=== PATIENT | female | born 1940 | race Caucasian/White ===

== ENCOUNTER → 2016-08-23 | Outpatient (CLI) | payer OTHER | LOC: BMCIMAGING 10:29 | PROVIDERS: ATTEND Emergency Medicine | DX: M18.12 Unilateral primary osteoarthritis of first carpometacarpal joint, left hand (principal) ==

== ENCOUNTER 2016-12-21 22:41 | Emergency (ER) | payer OTHER ==
[2016-12-21 22:56] VITALS: TEMP 98.2
--- NOTE | 2016-12-21 23:28 | EDPHY ---
General Narrative: CHIEF COMPLAINT: Hematuria HISTORY OF PRESENT ILLNESS: Patient complains of 1 day history of angelina hematuria. She has a history of bladder carcinoma, diagnosed 2011. She reports no evidence of metastases that she is aware of. She has had intermittent therapies, none of which include any chemotherapy. She has a recent cystoscopy performed last Tuesday by her established physician Dr. Sanchez. This was reportedly normal per the patient. There was cytology/pathology sent. She did well until this evening when she noticed bright red blood in her urine. This was completely red when she urinated. She has had no fever or chills. No abdominal pain or fullness. No sensation of incomplete voiding. No incontinence. She does report more frequent urination. No back pain. No trauma or injury. No anticoagulants. No other associated complaints or modifying factors. REVIEW OF SYSTEMS: Ten systems reviewed and are negative unless otherwise noted in the HPI PCP: Dr. Haro SPECIALISTS: Dr. Sanchez PAST MEDICAL HISTORY: Bladder carcinoma, COPD PAST SURGICAL HISTORY: Recurrent cystoscopies and bladder biopsies SOCIAL HISTORY: Nonsmoker. Had a 40 pack year history of cigarette use, quit 6 years ago. No alcohol. FAMILY HISTORY: Noncontributory EXAMINATION General Appearance: Alert, no distress Head: normocephalic, atraumatic Eyes: Pupils equal and round, no conjunctival pallor or injection ENT, Mouth: Mucous membranes moist. Airway patent. Neck: Normal inspection, supple, non-tender Respiratory: Lungs are clear to auscultation. No wheeze, rhonchi or crackles Cardiovascular: Regular rate and rhythm no murmur Gastrointestinal: Abdomen is soft and nontender. No distention. No tympany. No rigidity. No CVA tenderness. No guarding. Nonacute abdomen Back: non-tender, no bony abnormalities Skin: Warm and dry, no rash. No petechiae or purpura Extremities: Nontender, no pedal edema Psychiatric: Mood and affect normal DIFFERENTIAL DIAGNOSES: Including but not limited to hematuria, cystitis, carcinoma, obstruction, stricture, UTI MDM: 11:40 p.m. Gross hematuria in a patient with history of bladder carcinoma, high grade. She has no abdominal pain. Abdominal exam is benign. CBC, BMP, PT PTT have been ordered. Urinalysis is pending. She is in no acute distress. She is not taking anticoagulants. Vital signs are all within normal limits. 11:50 p.m. Postvoid residual reveals no urine on the bladder scanner. 12:15 a.m. At this time I have discussed the case with Dr. Sibley. He will assume care the patient. Please see his note for final disposition. Laboratory studies are pending at this time. Plan for discharge home with follow up with urologist. Her abdominal exam remains benign. Vital signs are stable. No evidence of active bleeding or any evidence of peritonitis. - History Smoking Status: Former smoker - Objective Vital Signs: Initial Vital Signs Temperature (C) 98.2 F 12/21/16 22:52 Heart Rate 74 12/21/16 22:52 Respiratory Rate 18 12/21/16 22:52 Blood Pressure 139/78 H 12/21/16 22:52 O2 Sat (%) 94 12/21/16 22:52 O2 Delivery Mode Room Air Allergies/Adverse Reactions: levofloxacin [From Levaquin] Allergy (Verified 12/21/16 22:56) Home Medications: Medication Instructions Recorded Ascorbic Acid [Vitamin C 500 mg 500 mg PO DAILY 11/24/11 (OTC)] Glucos/MSM/Colgii/C/Man/Herb21 1 each PO BID@,11/24/11 [Glucosamine-MSM Complex Cap] Ca/D3/Mag Ox/Zinc/Manager Diabetes/Torres/Bor 1 each PO BID@,04/25/14 [Caltrate 600+D Plus Tab Chew] Acetaminophen [Tylenol Tablet] 325 mg PO DAILY PRN 05/02/14 Ibuprofen [Motrin (OTC)] 200 mg PO DAILY PRN 05/02/14 Cephalexin [Keflex (*)] 500 mg PO QID #40 cap 07/13/14 Laboratory Results: 12/22/16 12/22/16 12/22/16 00:00 00:00 00:00 WBC Pending RBC Pending Hgb Pending Hct Pending MCV Pending MCH Pending MCHC Pending RDW Pending Plt Count Pending MPV Pending Neut % (Auto) Pending Lymph % (Auto) Pending [place] % (Auto) Pending Eos % (Auto) Pending Baso % (Auto) Pending Nucleat RBC Rel Count Pending Absolute Neuts (auto) Pending Absolute Lymphs (auto) Pending Absolute Monos (auto) Pending Absolute Eos (auto) Pending Absolute Basos (auto) Pending Absolute Nucleated RBC Pending Immature Gran % Pending Immature Gran # Pending APTT Pending Sodium Pending Potassium Pending Chloride Pending Carbon Dioxide Pending Anion Gap Pending BUN Pending Creatinine Pending Estimated GFR Pending Glucose Pending Calcium Pending Urine Color Urine Appearance Urine pH Ur Specific [place] Urine Protein Urine Ketones Urine Blood Urine Nitrate Urine Bilirubin Urine Urobilinogen Ur Leukocyte Esterase Urine RBC Urine WBC Ur Epithelial Cells Urine Mucus Urine Glucose 12/21/16 23:25 WBC RBC Hgb Hct MCV MCH MCHC RDW Plt Count MPV Neut % (Auto) Lymph % (Auto) [place] % (Auto) Eos % (Auto) Baso % (Auto) Nucleat RBC Rel Count Absolute Neuts (auto) Absolute Lymphs (auto) Absolute Monos (auto) Absolute Eos (auto) Absolute Basos (auto) Absolute Nucleated RBC Immature Gran % Immature Gran # APTT Sodium Potassium Chloride Carbon Dioxide Anion Gap BUN Creatinine Estimated GFR Glucose Calcium Urine Color RED Urine Appearance MODERATELY TURBID Urine pH 5.0 (5.0-7.5) Ur Specific [place] 1.018 (1.002-1.030) Urine Protein 2+ H (NEGATIVE) Urine Ketones NEGATIVE (NEGATIVE) Urine Blood 3+ H (NEGATIVE) Urine Nitrate NEGATIVE (NEGATIVE) Urine Bilirubin NEGATIVE (NEGATIVE) Urine Urobilinogen NEGATIVE EU EU (0.2-1.0) Ur Leukocyte Esterase 1+ H (NEGATIVE) Urine RBC 50-182 /hpf H /hpf (0-3) Urine WBC 50-182 /hpf H /hpf (0-3) Ur Epithelial Cells Not Reported Urine Mucus 1+ /lpf /lpf (NONE-1+) Urine Glucose NEGATIVE (NEGATIVE) Departure - Departure Disposition: Home, Routine, Self-Care Clinical Impression: Bladder carcinoma Hematuria Qualifiers: Hematuria type: gross Qualified Code(s): R31.0 - Gross hematuria Condition: Good Instructions: Hematuria (ED) Additional Instructions: 1. Contact established urologist in the morning for further care 2. Return to ED for abdominal pain, chest pain, lightheadedness dizziness or syncope Referrals: Rudi Haro MD [Primary Care Provider] - As per Instructions Elis Sanchez MD [Medical Doctor] - As per Instructions
[2016-12-21 23:33] LABS: COLOR RED; LEUKOCYTE ESTERASE,URINE 1+ (NEGATIVE); NITRITE,URINE NEGATIVE (NEGATIVE)
[2016-12-21 23:39] LABS: MUCUS 1+ /lpf (NONE-1+); RBC,URINE 50-182 /hpf (0-3); WBC,URINE 50-182 /hpf (0-3)
[2016-12-22 00:16] LABS: % IMMATURE GRANULYOCYTES 0.5 % (0.0-1.1); ABSOLUTE IMMATURE GRANULOCYTES 0.04 10^3/uL (0.00-0.10); ADD DIFF? NO; ADD MORPH? NO; ADD SCAN? NO; ATYPICAL LYMPHOCYTE FLAG 20 (0-99); FRAGMENT RBC FLAG 0 (0-99); HEMATOCRIT 39.8 % (38.0-47.0); HEMOGLOBIN 13.8 g/dL (12.6-16.3); LEFT SHIFT FLG 0 (0-99); LIPEMIA HEMOLYSIS FLAG 90 (0-99); MEAN CELL HEMOGLOBIN 31.2 pg (27.9-34.1); MEAN CELL HEMOGLOBIN CONCENTR. 34.7 g/dL (32.4-36.7); MEAN PLATELET VOLUME 9.5 fL (8.7-11.7); PLATELET CLUMPS FLAG 0 (0-99); PLATELET COUNT 253 10^3/uL (150-400); RED BLOOD CELL COUNT 4.42 10^6/uL (4.18-5.33); RED CELL DISTRIBUTION WIDTH 12.5 % (11.5-15.2)
[2016-12-22 00:33] LABS: ANION GAP 13 mEq/L (8-16); CALCIUM 9.4 mg/dL (8.5-10.4); CARBON DIOXIDE 21 mEq/l (22-31); CHLORIDE 106 mEq/L (97-110); CREATININE 0.8 mg/dL (0.6-1.0); GLOMERULAR FILTRATION RATE > 60; GLUCOSE 107 mg/dL (70-100); POTASSIUM 4.2 mEq/L (3.5-5.2); SODIUM 140 mEq/L (134-144)
[2016-12-22] MEDS ORDERED: CEPHALEXIN 500 MG CAP PO ONE (00:52)
[2016-12-22] MEDS ORDERED: CEPHALEXIN 500MG PREPACK#4 BTL TAKEHOME ONE (00:52)
[2016-12-22 01:07] VITALS: BP 137/79; PULSE 84; RESP 16; O2SAT 95
== END 2016-12-22 01:07 | disposition home or self-care (01) ==
DX: C67.9 Malignant neoplasm of bladder, unspecified (principal); R31.0 Gross hematuria; J44.9 Chronic obstructive pulmonary disease, unspecified; Z87.891 Personal history of nicotine dependence

== ENCOUNTER → 2017-11-03 | Outpatient (CLI) | payer OTHER | LOC: FIMAGING 10:52 | PROVIDERS: ATTEND Internal Medicine | DX: J43.9 Emphysema, unspecified (principal); Z85.118 Personal history of other malignant neoplasm of bronchus and lung ==

== ENCOUNTER → 2018-04-06 | Outpatient (CLI) | payer OTHER ==
[~2018-04-06] MED LIST: IOTHALAMATE MEG (CYSTO-CONRAY II) 250 ML VIAL BLADIN ONE
== END ==
LOC: FIMAGING 12:36
PROVIDERS: ATTEND Specialist
DX: N28.9 Disorder of kidney and ureter, unspecified (principal); C67.9 Malignant neoplasm of bladder, unspecified
CPT/HCPCS: 74430; Q9961